=== PATIENT | male | born 1975 | race African-American/Black ===

== ENCOUNTER → 2020-03-17 10:16 | Outpatient (CLI) | payer OTHER ==
--- NOTE | ~2020-03-17 | EC ---
PATIENT:ALIE CHNADRA DATE OF SERVICE: 03/17/20 SEX: M MEDICAL RECORD: [id number] DATE OF : 71 [facility] AGE OF PATIENT: 44 ADMISSION DATE: 03/17/20 REFERRING PHYSICIAN: INTERPRETING PHYSICIAN: MIGUEL POON MD ECHOCARDIOGRAM REPORT ECHO CHARGES 4 ECHO COMPLETE Date: 03/17/20 CLINICAL DIAGNOSIS: ISCHEMIC ATTACK ECHOCARDIOGRAPHIC MEASUREMENTS (adult normal given) AC root (d.<3.7cm) 2.6 cm LV Septum d (<1.2 cm> 1.0 cm Valve Excursion 2.0 cm LV Septum (systole) 1.4 cm Left Atria (s.<4.0cm> 3.1 cm LVPW d(<1.2cm) 0.8 cm RV (d.<2.3cm) 2.4 cm LVPW (sytole) 1.3 cm LV diastole(<5.6CM) 5.1 cm MV E-F(>70mm/sec) cm LV systole 3.7 cm LVOT Diameter 1.4 cm MV exc.(>10mm) cm Est.ejection fraction (50-75%) % DOPPLER: LVIT cm/sec A 51 cm/sec E 71 cm/sec LA cm/sec RVSP 23.5 mmHg LVOT 76 cm/sec AOP1/2T m/s Asc. Ao 93 cm/sec RVOT 45 cm/sec RA cm/sec PA 58 cm/sec AV Gradient Peak 3.5 mmHg AV Mean 2.1 mmHg AV Area 1.5 cm MV Gradient Peak 2.3 mmHg MV Mean 1.0 mmHg MV Area cm COMMENTS: Patient Transport Orderly: Meli HIDALGO Word Processor Operator: 4 Dr. Poon TAPE# PACS Pericardial Effusion N DATE OF SERVICE: 03/17/2020 PROCEDURE: Transthoracic echocardiograph. FINDINGS: Left ventricle is normal size, shape, structure, and function. The left atrium is normal. The aortic valve is normal. ECHOCARDIOGRAM REPORT [id number] ALIE CHANDRA Mitral valve is normal. Tricuspid valve is normal. Right ventricle is normal. Right atrium is normal. Pulmonic valve is normal. Pericardium is normal. TRANSINT:[id number] Voice Confirmation ID: [id number] DOCUMENT ID: [id number] MIGUEL POON MD CC: [id number] DICTATION DATE: 03/18/20929 MEDICAID BILLING SPECIALIST: [id number]/18/[id number] DEP CLI 03/17/20 [facility] [address] [facility]
== END | disposition home or self-care (01) ==
LOC: D.ECHO 09:35
PROVIDERS: ATTEND Psychiatry & Neurology Neurology
DX: G45.8 Other transient cerebral ischemic attacks and related syndromes (principal)